=== PATIENT | male | born 1940 | race Caucasian/White ===

== ENCOUNTER → 2017-07-21 | Outpatient (CLI) | payer MEDICARE, BC ==
[~2017-07-21] MED LIST: ASPI500; ASPI81EC PO; ATOR40TA PO; BENAML20/5; BETA.05TC; BUME2 PO; CICLOPIROX 8%34.6 ML; CITA20 PO; ERGO50000 PO; ESCI10; EZET10; Ecotrin Low Strength PO; FURO40 PO; GARLIC TAB; HYDACE5 PO; HYDCOR1TO TOP; LISI5 PO; METO100ER; METO25 PO; METO25ER PO; METO50 PO; METO50ER PO; NIAC500ER PO; OMEP20ER PO; PRAV20 PO; Penlac6.6 ML; Plavix75 MG PO; RABE20; SPIR50; TRIA15CR3; TRIA15CR3 TOP; Zantac150 MG PO; [UNRECOGNIZED DRUG - OTHER]
== END | disposition home or self-care (01) ==
LOC: PLD 09:17 → LAB SHORT 09:17
DX: D22.39 Melanocytic nevi of other parts of face (principal)
CPT/HCPCS: 88305

== ENCOUNTER 2017-09-10 22:10 | Inpatient (IN) | payer MEDICARE, BC ==
[~2017-09-10] VITALS: Ht 193 cm; Wt 83.2 kg
[~2017-09-10 22:10] MED LIST changes: -ATOR40TA PO; -LISI5 PO; -METO25ER PO; -Plavix75 MG PO; -TRIA15CR3 TOP; -Zantac150 MG PO
[2017-09-10] MEDS ORDERED: Penlac6.6 ML (22:55)
[2017-09-10] MEDS ORDERED: TRIA15CR3 TOP (22:56)
[2017-09-10 23:00] LABS: Calcium, Ionized (POC) 1.18 mmol/L (1.10-1.46); Chloride (POC) 105 mmol/L (98-108); Creatinine (POC) 1.2 mg/dL (0.8-1.3); Glucose (ISTAT POC) 77 mg/dL (70-99); Hemoglobin (POC) 15.3 g/dL (13.5-17.5); Potassium (POC) 3.8 mmol/L (3.5-5.5); Sodium (POC) 142 mmol/L (135-148); Total CO2 (POC) 25 mmol/L (21-32)
[2017-09-10 23:07] LABS: BASOPHILS ABSOLUTE AUTO 0.07 K/mm3 (0.00-0.23); BASOPHILS PERCENT AUTO 1 % (0-2); EOSINOPHILS ABSOLUTE AUTO 0.49 K/mm3 (0.00-0.68); EOSINOPHILS PERCENT AUTO 6 % (0-6); Hematocrit 43.4 % (37.0-53.0); Hemoglobin 14.1 g/dL (13.5-17.5); IMMATURE GRAN ABSOLUTE AUTO 0.01 K/mm3 (0.00-0.10); IMMATURE GRAN PERCENT AUTO 0 % (0-1); LYMPHOCYTES ABSOLUTE AUTO 1.95 K/mm3 (0.84-5.20); LYMPHOCYTES PERCENT AUTO 23 % (21-46); MONOCYTES ABSOLUTE AUTO 0.95 K/mm3 (0.16-1.47); MONOCYTES PERCENT AUTO 11 % (4-13); Mean Corpuscular HGB 29.8 pg (26.0-34.0); Mean Corpuscular HGB Conc 32.5 g/dL (31.5-36.5); Mean Corpuscular Volume 92 fL (80-100); Mean Platelet Volume 11.7 fL (9.1-12.4); NEUTROPHILS PERCENT AUTO 59 % (41-73); Platelet Count 210 K/mm3 (150-400); RDW Coefficient Variation 14.8 % (11.7-14.2); RDW Standard Deviation 50.7 fL (35.1-46.3); Red Blood Cell Count 4.73 M/mm3 (4.30-5.90); White Blood Cell Count 8.37 K/mm3 (4.00-11.30)
[2017-09-10 23:24] LABS: Alanine Aminotransfer (ALT/SGP 16 U/L (12-78); Albumin, Blood 3.5 g/dL (3.4-5.0); Albumin/Globulin Ratio 0.9 (0.8-1.8); Alk Phos 96 U/L (50-136); Anion Gap 7 mmol/L (6-16); Aspartate Aminotrans (AST/SGOT 23 U/L (12-37); Bilirubin, Total 0.5 mg/dL (0.1-1.0); Blood Urea Nitrogen 20 mg/dL (8-24); Bun/Creatinine Ratio 19.4 (12.0-20.0); CO2, Blood 27 mmol/L (21-32); Calcium, Blood 8.5 mg/dL (8.5-10.1); Chloride, Blood 108 mmol/L (98-108); Creatinine, Blood 1.03 mg/dL (0.60-1.20); Glomerular Filtration Rate >60 (60-); Glucose, Blood 76 mg/dL (70-99); Potassium, Blood 3.8 mmol/L (3.5-5.5); Sodium, Blood 142 mmol/L (136-145); Total Protein, Blood 7.5 g/dL (6.4-8.2); Troponin I 0.174 ng/mL (0.000-0.040)
[2017-09-11 01:17] LABS: International Normalized Ratio 1.02; Prothrombin Time Results 10.6 Sec (9.7-11.5)
[2017-09-12 04:33] LABS: BASOPHILS ABSOLUTE AUTO 0.07 K/mm3 (0.00-0.23); BASOPHILS PERCENT AUTO 1 % (0-2); EOSINOPHILS ABSOLUTE AUTO 0.44 K/mm3 (0.00-0.68); EOSINOPHILS PERCENT AUTO 6 % (0-6); Hematocrit 40.3 % (37.0-53.0); Hemoglobin 13.2 g/dL (13.5-17.5); IMMATURE GRAN ABSOLUTE AUTO 0.01 K/mm3 (0.00-0.10); IMMATURE GRAN PERCENT AUTO 0 % (0-1); LYMPHOCYTES ABSOLUTE AUTO 1.73 K/mm3 (0.84-5.20); LYMPHOCYTES PERCENT AUTO 22 % (21-46); MONOCYTES ABSOLUTE AUTO 0.93 K/mm3 (0.16-1.47); MONOCYTES PERCENT AUTO 12 % (4-13); Mean Corpuscular HGB 29.7 pg (26.0-34.0); Mean Corpuscular HGB Conc 32.8 g/dL (31.5-36.5); Mean Corpuscular Volume 91 fL (80-100); Mean Platelet Volume 11.2 fL (9.1-12.4); NEUTROPHILS ABSOLUTE AUTO 4.66 K/mm3 (1.96-9.15); NEUTROPHILS PERCENT AUTO 59 % (41-73); Platelet Count 192 K/mm3 (150-400); RDW Coefficient Variation 14.9 % (11.7-14.2); RDW Standard Deviation 49.7 fL (35.1-46.3); Red Blood Cell Count 4.44 M/mm3 (4.30-5.90); White Blood Cell Count 7.84 K/mm3 (4.00-11.30)
[2017-09-12 04:53] LABS: Anion Gap 5 mmol/L (6-16); Blood Urea Nitrogen 19 mg/dL (8-24); Bun/Creatinine Ratio 16.5 (12.0-20.0); CO2, Blood 28 mmol/L (21-32); Calcium, Blood 8.5 mg/dL (8.5-10.1); Chloride, Blood 108 mmol/L (98-108); Creatinine, Blood 1.15 mg/dL (0.60-1.20); Glomerular Filtration Rate >60 (60-); Glucose, Blood 89 mg/dL (70-99); Potassium, Blood 4.1 mmol/L (3.5-5.5); Sodium, Blood 141 mmol/L (136-145)
[2017-09-13 03:58] LABS: BASOPHILS ABSOLUTE AUTO 0.06 K/mm3 (0.00-0.23); BASOPHILS PERCENT AUTO 1 % (0-2); EOSINOPHILS ABSOLUTE AUTO 0.23 K/mm3 (0.00-0.68); EOSINOPHILS PERCENT AUTO 2 % (0-6); Hematocrit 41.6 % (37.0-53.0); Hemoglobin 13.5 g/dL (13.5-17.5); IMMATURE GRAN ABSOLUTE AUTO 0.02 K/mm3 (0.00-0.10); IMMATURE GRAN PERCENT AUTO 0 % (0-1); LYMPHOCYTES PERCENT AUTO 12 % (21-46); MONOCYTES ABSOLUTE AUTO 1.22 K/mm3 (0.16-1.47); MONOCYTES PERCENT AUTO 12 % (4-13); Mean Corpuscular HGB 29.5 pg (26.0-34.0); Mean Corpuscular HGB Conc 32.5 g/dL (31.5-36.5); Mean Corpuscular Volume 91 fL (80-100); Mean Platelet Volume 11.8 fL (9.1-12.4); NEUTROPHILS ABSOLUTE AUTO 7.75 K/mm3 (1.96-9.15); NEUTROPHILS PERCENT AUTO 73 % (41-73); Platelet Count 196 K/mm3 (150-400); RDW Coefficient Variation 14.9 % (11.7-14.2); RDW Standard Deviation 49.9 fL (35.1-46.3); Red Blood Cell Count 4.58 M/mm3 (4.30-5.90); White Blood Cell Count 10.58 K/mm3 (4.00-11.30)
[2017-09-13 04:21] LABS: Anion Gap 5 mmol/L (6-16); Blood Urea Nitrogen 20 mg/dL (8-24); Bun/Creatinine Ratio 16.4 (12.0-20.0); CO2, Blood 28 mmol/L (21-32); Calcium, Blood 8.4 mg/dL (8.5-10.1); Chloride, Blood 108 mmol/L (98-108); Creatinine, Blood 1.22 mg/dL (0.60-1.20); Glomerular Filtration Rate >60 (60-); Glucose, Blood 94 mg/dL (70-99); Potassium, Blood 4.1 mmol/L (3.5-5.5); Sodium, Blood 141 mmol/L (136-145)
[2017-09-13] MEDS ORDERED: Plavix75 MG PO (15:22)
[2017-09-13] MEDS ORDERED: ATOR40TA PO (15:24)
[2017-09-13] MEDS ORDERED: LISI5 PO (15:25)
[2017-09-13] MEDS ORDERED: METO25ER PO (15:27)
== END 2017-09-13 16:00 | disposition home or self-care (01) | DRG 247 ==
LOC: ER 22:10 → ICUW 09-11 00:35 → ICUE 09-11 00:35
PROVIDERS: Emergency Medicine; Internal Medicine Interventional Cardiology
PROC: 027034Z Dilation of Coronary Artery, One Artery with Drug-eluting Intraluminal Device, Percutaneous Approach (ICD-10-PCS; principal; 2017-09-12)
PROC: 4A023N7 Measurement of Cardiac Sampling and Pressure, Left Heart, Percutaneous Approach (ICD-10-PCS; 2017-09-12)
PROC: B2111ZZ Fluoroscopy of Multiple Coronary Arteries using Low Osmolar Contrast (ICD-10-PCS; 2017-09-12)
DX: I21.4 Non-ST elevation (NSTEMI) myocardial infarction (principal); C81.90 Hodgkin lymphoma, unspecified, unspecified site; I25.10 Atherosclerotic heart disease of native coronary artery without angina pectoris; I10 Essential (primary) hypertension; K21.9 Gastro-esophageal reflux disease without esophagitis; I73.9 Peripheral vascular disease, unspecified; E78.5 Hyperlipidemia, unspecified; I65.29 Occlusion and stenosis of unspecified carotid artery; F32.9 Major depressive disorder, single episode, unspecified
CPT/HCPCS: 36415; 36416; 71046; 71275; 74175; 80047; 80048; 80053; 83690; 84484; 85014; 85025; 85610; 85730; 92978; 93005; 93010; 93306; 93454; 93571; 96365; 99152; 99153; 99285; C1725; C1753; C1769; C1874; C1894; C9600; J0360; J1644; J2250; J3010; J7030; Q9967

== ENCOUNTER 2018-02-12 22:12 | Emergency (ER) | payer MEDICARE, BC ==
[~2018-02-12] VITALS: Ht 193 cm; Wt 88.9 kg
[~2018-02-12 22:12] MED LIST changes: +ATOR40TA PO; +LISI5 PO; +METO25ER PO; +Plavix75 MG PO; +TRIA15CR3 TOP
[2018-02-12 22:42] LABS: BASOPHILS ABSOLUTE AUTO 0.08 K/mm3 (0.00-0.23); BASOPHILS PERCENT AUTO 1 % (0-2); EOSINOPHILS ABSOLUTE AUTO 0.21 K/mm3 (0.00-0.68); EOSINOPHILS PERCENT AUTO 2 % (0-6); Hematocrit 41.9 % (37.0-53.0); Hemoglobin 13.5 g/dL (13.5-17.5); IMMATURE GRAN ABSOLUTE AUTO 0.03 K/mm3 (0.00-0.10); IMMATURE GRAN PERCENT AUTO 0 % (0-1); LYMPHOCYTES ABSOLUTE AUTO 1.39 K/mm3 (0.84-5.20); LYMPHOCYTES PERCENT AUTO 13 % (21-46); MONOCYTES ABSOLUTE AUTO 0.82 K/mm3 (0.16-1.47); MONOCYTES PERCENT AUTO 8 % (4-13); Mean Corpuscular HGB 31.3 pg (26.0-34.0); Mean Corpuscular HGB Conc 32.2 g/dL (31.5-36.5); Mean Corpuscular Volume 97 fL (80-100); Mean Platelet Volume 11.4 fL (9.1-12.4); NEUTROPHILS ABSOLUTE AUTO 8.21 K/mm3 (1.96-9.15); NEUTROPHILS PERCENT AUTO 77 % (41-73); Platelet Count 201 K/mm3 (150-400); RDW Coefficient Variation 15.2 % (11.7-14.2); RDW Standard Deviation 54.7 fL (35.1-46.3); Red Blood Cell Count 4.32 M/mm3 (4.30-5.90); White Blood Cell Count 10.74 K/mm3 (4.00-11.30)
[2018-02-12] MEDS ORDERED: Zantac150 MG PO (22:49)
[2018-02-12 23:01] LABS: Alanine Aminotransfer (ALT/SGP 19 U/L (12-78); Albumin, Blood 3.5 g/dL (3.4-5.0); Albumin/Globulin Ratio 0.9 (0.8-1.8); Alk Phos 98 U/L (50-136); Anion Gap 8 mmol/L (6-16); Aspartate Aminotrans (AST/SGOT 23 U/L (12-37); Bilirubin, Total 0.4 mg/dL (0.1-1.0); Blood Urea Nitrogen 33 mg/dL (8-24); Bun/Creatinine Ratio 21.6 (12.0-20.0); CO2, Blood 26 mmol/L (21-32); Calcium, Blood 8.8 mg/dL (8.5-10.1); Chloride, Blood 109 mmol/L (98-108); Creatinine, Blood 1.53 mg/dL (0.60-1.20); Globulin, Blood 3.7 g/dL (2.2-4.0); Glomerular Filtration Rate 47 (60-); Glucose, Blood 113 mg/dL (70-99); Potassium, Blood 4.6 mmol/L (3.5-5.5); Sodium, Blood 143 mmol/L (136-145); Total Protein, Blood 7.2 g/dL (6.4-8.2); Troponin I <0.015 ng/mL (0.000-0.040)
== END 2018-02-13 01:44 | disposition home or self-care (01) ==
LOC: ER 22:12
PROVIDERS: Emergency Medicine
DX: R55 Syncope and collapse (principal); R61 Generalized hyperhidrosis; Z88.0 Allergy status to penicillin; Z91.040 Latex allergy status; Z79.899 Other long term (current) drug therapy; Z79.01 Long term (current) use of anticoagulants
CPT/HCPCS: 36415; 71046; 80053; 84484; 85025; 93005; 93010; 99285-25

== ENCOUNTER → 2018-07-27 | Outpatient (CLI) | payer MEDICARE, BC ==
[~2018-07-27] MED LIST changes: +Zantac150 MG PO
[2018-07-27 15:00] LABS: Bun/Creatinine Ratio 18.2 (12.0-20.0); Calcium, Blood 9.1 mg/dL (8.5-10.1); Creatinine, Blood 1.37 mg/dL (0.60-1.20); Potassium, Blood 4.8 mmol/L (3.5-5.5)
== END ==
LOC: LAB SHORT 13:43 → LAB 13:43
PROVIDERS: Hospitalist
DX: N18.3 Chronic kidney disease, stage 3 (moderate) (principal)
CPT/HCPCS: 80048

== ENCOUNTER → 2020-04-15 | Outpatient (CLI) | payer MEDICARE, BC ==
[2020-04-15 16:01] LABS: BASOPHILS ABSOLUTE AUTO 0.07 K/mm3 (0.00-0.23); BASOPHILS PERCENT AUTO 1 % (0-2); EOSINOPHILS ABSOLUTE AUTO 0.29 K/mm3 (0.00-0.68); EOSINOPHILS PERCENT AUTO 4 % (0-6); Hematocrit 40.2 % (37.0-53.0); Hemoglobin 12.8 g/dL (13.5-17.5); IMMATURE GRAN ABSOLUTE AUTO 0.02 K/mm3 (0.00-0.10); IMMATURE GRAN PERCENT AUTO 0 % (0-1); LYMPHOCYTES ABSOLUTE AUTO 1.56 K/mm3 (0.84-5.20); LYMPHOCYTES PERCENT AUTO 21 % (21-46); MONOCYTES ABSOLUTE AUTO 0.73 K/mm3 (0.16-1.47); MONOCYTES PERCENT AUTO 10 % (4-13); Mean Corpuscular HGB 29.2 pg (26.0-34.0); Mean Corpuscular HGB Conc 31.8 g/dL (31.5-36.5); Mean Corpuscular Volume 92 fL (80-100); NEUTROPHILS ABSOLUTE AUTO 4.88 K/mm3 (1.96-9.15); NEUTROPHILS PERCENT AUTO 65 % (41-73); RDW Coefficient Variation 15.5 % (11.7-14.2); RDW Standard Deviation 52.5 fL (35.1-46.3); Red Blood Cell Count 4.39 M/mm3 (4.30-5.90); White Blood Cell Count 7.55 K/mm3 (4.00-11.30)
[2020-04-15 18:01] LABS: Albumin, Blood 3.5 g/dL (3.4-5.0); Albumin/Globulin Ratio 0.9 (0.8-1.8); Bilirubin, Total 0.4 mg/dL (0.1-1.0); Bun/Creatinine Ratio 25.2 (12.0-20.0); Calcium, Blood 8.8 mg/dL (8.5-10.1); Creatinine, Blood 1.27 mg/dL (0.60-1.20); Globulin, Blood 3.7 g/dL (2.2-4.0); Total Protein, Blood 7.2 g/dL (6.4-8.2)
== END | disposition home or self-care (01) ==
LOC: LAB 10:12 → LAB SHORT 10:12
PROVIDERS: Hospitalist
DX: N18.31 Chronic kidney disease, stage 3a (principal)
CPT/HCPCS: 80053; 85025

== ENCOUNTER → 2021-06-16 | Outpatient (CLI) | payer MEDICARE, BC ==
[2021-06-16 13:19] LABS: Hemoglobin 12.4 g/dL (13.5-17.5); Mean Corpuscular HGB 29.2 pg (26.0-34.0); Mean Corpuscular HGB Conc 32.6 g/dL (31.5-36.5); Mean Corpuscular Volume 90 fL (80-100); Platelet Count 165 K/mm3 (150-400); RDW Coefficient Variation 16.5 % (11.7-14.2); RDW Standard Deviation 53.9 fL (35.1-46.3); Red Blood Cell Count 4.24 M/mm3 (4.30-5.90)
[2021-06-16 13:32] LABS: Albumin, Blood 3.4 g/dL (3.4-5.0); Bilirubin, Total 1.1 mg/dL (0.1-1.0); Calcium, Blood 8.8 mg/dL (8.5-10.1); Creatinine, Blood 1.75 mg/dL (0.60-1.20); Globulin, Blood 3.5 g/dL (2.2-4.0); Potassium, Blood 3.6 mmol/L (3.5-5.5); Total Protein, Blood 6.9 g/dL (6.4-8.2)
[2021-06-16 13:40] LABS: BASOPHILS ABSOLUTE AUTO 0.04 K/mm3 (0.00-0.23); BASOPHILS PERCENT AUTO 0 % (0-2); EOSINOPHILS PERCENT AUTO 1 % (0-6); IMMATURE GRAN ABSOLUTE AUTO 0.09 K/mm3 (0.00-0.10); IMMATURE GRAN PERCENT AUTO 1 % (0-1); LYMPHOCYTES ABSOLUTE AUTO 0.77 K/mm3 (0.84-5.20); LYMPHOCYTES PERCENT AUTO 5 % (21-46); MONOCYTES ABSOLUTE AUTO 0.95 K/mm3 (0.16-1.47); MONOCYTES PERCENT AUTO 6 % (4-13); Mean Platelet Volume 13.4 fL (9.1-12.4); NEUTROPHILS ABSOLUTE AUTO 13.19 K/mm3 (1.96-9.15); NEUTROPHILS PERCENT AUTO 87 % (41-73); White Blood Cell Count 15.14 K/mm3 (4.00-11.30)
== END ==
LOC: LAB SHORT 13:14
PROVIDERS: Physician Assistant
DX: R10.9 Unspecified abdominal pain (principal); N10 Acute pyelonephritis
CPT/HCPCS: 80053; 83690; 85025

== ENCOUNTER → 2021-07-03 | Outpatient (CLI) | payer MEDICARE, BC | END | disposition home or self-care (01) | LOC: LAB SHORT 15:40 | DX: N30.01 Acute cystitis with hematuria (principal) | CPT/HCPCS: 87077; 87086; 87186 ==

== ENCOUNTER 2022-03-10 13:09 | Emergency (ER) | payer MEDICARE, BC ==
[~2022-03-10] VITALS: Ht 193 cm; Wt 81.7 kg
[2022-03-10 13:33] LABS: Hematocrit 38.3 % (37.0-53.0); Hemoglobin 12.1 g/dL (13.5-17.5); Mean Corpuscular HGB 28.6 pg (26.0-34.0); Mean Corpuscular HGB Conc 31.6 g/dL (31.5-36.5); Mean Corpuscular Volume 91 fL (80-100); Mean Platelet Volume 12.4 fL (9.1-12.4); Platelet Count 139 K/mm3 (150-400); RDW Coefficient Variation 16.3 % (11.7-14.2); Red Blood Cell Count 4.23 M/mm3 (4.30-5.90)
[2022-03-10 13:39] LABS: White Blood Cell Count 10.06 K/mm3 (4.00-11.30)
[2022-03-10 13:51] LABS: International Normalized Ratio 2.28; Prothrombin Time Results 22.7 Sec (9.7-11.5)
[2022-03-10 13:57] LABS: BASOPHILS PERCENT MAN 2 % (0-2); EOSINOPHILS PERCENT MAN 1 % (0-6); LYMPHOCYTES PERCENT MAN 13 % (21-46); MONOCYTES PERCENT MAN 6 % (4-13); NEUTROPHILS ABSOLUTE MAN 7.84 K/mm3 (1.96-9.15); SEG NEUTROPHILS PERCENT MAN 78 % (41-73); TOTAL CELLS COUNTED 100
[2022-03-10 14:00] LABS: Alanine Aminotransfer (ALT/SGP 19 U/L (12-78); Albumin, Blood 3.3 g/dL (3.4-5.0); Albumin/Globulin Ratio 0.9 (0.8-1.8); Alk Phos 128 U/L (50-136); Anion Gap 7 mmol/L (6-16); Aspartate Aminotrans (AST/SGOT 26 U/L (12-37); Bilirubin, Total 0.4 mg/dL (0.1-1.0); Blood Urea Nitrogen 28 mg/dL (8-24); Bun/Creatinine Ratio 21.5 (12.0-20.0); CO2, Blood 26 mmol/L (21-32); Calcium, Blood 9.1 mg/dL (8.5-10.1); Chloride, Blood 107 mmol/L (98-108); Ethanol (Alcohol), Blood, Med <3 mg/dL; Globulin, Blood 3.5 g/dL (2.2-4.0); Glomerular Filtration Rate 55 (60-); Glucose, Blood 104 mg/dL (70-99); Potassium, Blood 4.2 mmol/L (3.5-5.5); Sodium, Blood 140 mmol/L (136-145); Total Protein, Blood 6.8 g/dL (6.4-8.2)
[2022-03-10 14:42] LABS: Source, Urine Foley catheter
[2022-03-10 14:52] LABS: Appearance, Urine Clear (Clear); Bilirubin, Urine Neg (Neg); Blood, Urine 3+ (Neg); Color, Urine Yellow (P-Yellow); Glucose Qualitative, Urine Neg (Neg); Ketones, Urine Neg (Neg); Leukocyte Esterase, Urine 1+ (Neg); Nitrite, Urine Neg (Neg); Protein, Urine 1+ (Neg); Urobilinogen, Urine NORM (Normal); pH, Urine 6.5 (5.0-8.0)
[2022-03-10 15:03] LABS: Bacteria Rare /hpf; Hyaline Casts 0-2 /lpf (0-2); Mucus Light (0-Heavy); Red Blood Cells, Urine 0-2 /hpf (0-2); Renal Epithelial Rare /hpf (0-Rare); Squamous Epithelial Cells Rare /hpf (Few)
== END 2022-03-10 16:30 | disposition other institution (70) ==
LOC: ER 13:09
PROVIDERS: Emergency Medicine
DX: S06.5XAA Traumatic subdural hemorrhage with loss of consciousness status unknown, initial encounter (principal); R40.2362 Coma scale, best motor response, obeys commands, at arrival to emergency department; R40.2142 Coma scale, eyes open, spontaneous, at arrival to emergency department; R40.2252 Coma scale, best verbal response, oriented, at arrival to emergency department; W19.XXXA Unspecified fall, initial encounter; Z88.0 Allergy status to penicillin; Z91.040 Latex allergy status; Z79.899 Other long term (current) drug therapy; Z79.01 Long term (current) use of anticoagulants
CPT/HCPCS: 36415; 51702; 70450; 72125; 80053; 81001; 83690; 83880; 84484; 85025; 85610; 86850; 86900; 86901; 87086; 93005; 93010; G0480; J2405; J3430; J7050; J7168

== ENCOUNTER → 2022-11-24 | Outpatient (CLI) | payer MEDICARE, BC, OTHER ==
[~2022-11-24] MED LIST changes: +CIPR500 PO; +ELIQUIS5 M3 PO
[2022-11-24 19:55] LABS: Calcium, Blood 8.8 mg/dL (8.5-10.1); Creatinine, Blood 1.25 mg/dL (0.60-1.20); Potassium, Blood 4.7 mmol/L (3.5-5.5)
== END ==
LOC: LAB SHORT 12:25 → LAB 12:25
PROVIDERS: Hospitalist
DX: I12.9 Hypertensive chronic kidney disease with stage 1 through stage 4 chronic kidney disease, or unspecified chronic kidney disease (principal); N18.31 Chronic kidney disease, stage 3a
CPT/HCPCS: 80048; 83970

== ENCOUNTER → 2023-01-14 | Outpatient (CLI) | payer MEDICARE, BC, OTHER ==
[2023-01-14 19:49] LABS: BASOPHILS ABSOLUTE AUTO 0.05 K/mm3 (0.00-0.23); BASOPHILS PERCENT AUTO 1 % (0-2); EOSINOPHILS ABSOLUTE AUTO 0.23 K/mm3 (0.00-0.68); EOSINOPHILS PERCENT AUTO 3 % (0-6); Hematocrit 37.8 % (37.0-53.0); Hemoglobin 12.2 g/dL (13.5-17.5); IMMATURE GRAN ABSOLUTE AUTO 0.03 K/mm3 (0.00-0.10); IMMATURE GRAN PERCENT AUTO 0 % (0-1); LYMPHOCYTES ABSOLUTE AUTO 1.42 K/mm3 (0.84-5.20); LYMPHOCYTES PERCENT AUTO 17 % (21-46); MONOCYTES ABSOLUTE AUTO 0.84 K/mm3 (0.16-1.47); MONOCYTES PERCENT AUTO 10 % (4-13); Mean Corpuscular HGB 29.1 pg (26.0-34.0); Mean Corpuscular HGB Conc 32.3 g/dL (31.5-36.5); Mean Corpuscular Volume 90 fL (80-100); Mean Platelet Volume 12.7 fL (9.1-12.4); NEUTROPHILS PERCENT AUTO 70 % (41-73); Platelet Count 127 K/mm3 (150-400); RDW Coefficient Variation 16.9 % (11.7-14.2); RDW Standard Deviation 56.2 fL (35.1-46.3); Red Blood Cell Count 4.19 M/mm3 (4.30-5.90); White Blood Cell Count 8.47 K/mm3 (4.00-11.30)
== END ==
LOC: LAB 17:45 → LAB SHORT 17:45
PROVIDERS: Hospitalist
DX: I10 Essential (primary) hypertension (principal)
CPT/HCPCS: 85025

== ENCOUNTER 2023-04-03 14:14 | Inpatient (IN) | payer OTHER, MEDICARE, BC ==
[~2023-04-03] VITALS: Ht 193 cm; Wt 79.7 kg
[2023-04-03] MEDS ORDERED: NORT25 PO (15:18)
[2023-04-03] MEDS ORDERED: FERSU300 PO (15:20)
[2023-04-03 16:30] LABS: BASOPHILS ABSOLUTE AUTO 0.06 K/mm3 (0.00-0.23); BASOPHILS PERCENT AUTO 1 % (0-2); EOSINOPHILS PERCENT AUTO 2 % (0-6); Hematocrit 37.2 % (37.0-53.0); Hemoglobin 12.5 g/dL (13.5-17.5); IMMATURE GRAN PERCENT AUTO 1 % (0-1); LYMPHOCYTES ABSOLUTE AUTO 1.21 K/mm3 (0.84-5.20); LYMPHOCYTES PERCENT AUTO 12 % (21-46); MONOCYTES ABSOLUTE AUTO 0.75 K/mm3 (0.16-1.47); MONOCYTES PERCENT AUTO 8 % (4-13); Mean Corpuscular HGB 30.5 pg (26.0-34.0); Mean Corpuscular HGB Conc 33.6 g/dL (31.5-36.5); Mean Corpuscular Volume 91 fL (80-100); NEUTROPHILS ABSOLUTE AUTO 7.42 K/mm3 (1.96-9.15); NEUTROPHILS PERCENT AUTO 76 % (41-73); Platelet Count 149 K/mm3 (150-400); RDW Coefficient Variation 15.8 % (11.7-14.2); RDW Standard Deviation 53.5 fL (35.1-46.3); White Blood Cell Count 9.74 K/mm3 (4.00-11.30)
[2023-04-03 16:31] LABS: Albumin, Blood 3.2 g/dL (3.4-5.0); Bilirubin, Total 0.4 mg/dL (0.1-1.0); Bun/Creatinine Ratio 18.5 (12.0-20.0); Calcium, Blood 8.4 mg/dL (8.5-10.1); Creatinine, Blood 1.19 mg/dL (0.60-1.20); Globulin, Blood 3.3 g/dL (2.2-4.0); Mean Platelet Volume 13.9 fL (9.1-12.4); Potassium, Blood 4.4 mmol/L (3.5-5.5); Total Protein, Blood 6.5 g/dL (6.4-8.2)
[2023-04-03 16:43] LABS: International Normalized Ratio 1.05
[2023-04-03 17:35] VITALS: BP 145/102
[2023-04-03 17:36] VITALS: BP 158/100
[2023-04-03 17:40] VITALS: BP 158/93
[2023-04-03 17:51] VITALS: BP 158/93
[2023-04-03 18:39] VITALS: BP 151/96
--- NOTE | 2023-04-03 19:39 | NUR ---
SHIFT SUMMARY; PATIENT ARRIVED TO SURGICAL FLOOR LATE IN EVENING PRIOR TO NOC SHIFT TAKING OVER. PATIENT AO X 2-3. CAREGIVER AT BEDSIDE. MED LIST PROVIDED BY CAREGIVER. PATIENT HAS COGNITIVE IMPAIRMENTS. HISTORY AND ASSESSMENTS DONE PER PROTOCOL. PATIENT VERY PAINFULL WHEN MOVED FROM ER BED TO HOSPITAL BED IN ROOM. 4MG MORPHINE PROVIDED IV WITH MINIMAL RESULTS. 25MCG GIVEN AT SHIFT CHANGE WITH BETTER RESULTS HOWEVER PATIENT IS STILL PAINFULL.
[2023-04-03 19:47] VITALS: BP 159/97
[2023-04-03 22:22] LABS: Source, Urine Clean Catch
[2023-04-03 22:24] LABS: Bilirubin, Urine Neg (Neg); Blood, Urine 3+ (Neg); Glucose Qualitative, Urine Neg (Neg); Ketones, Urine Neg (Neg); Leukocyte Esterase, Urine Neg (Neg); Nitrite, Urine Neg (Neg); Protein, Urine 1+ (Neg); Specific Gravity, Urine 1.015 (1.003-1.022); Urobilinogen, Urine NORM (Normal)
--- NOTE | 2023-04-03 22:28 | NUR ---
HAMMOND PLACED EARLIER IN THE SHIFT FOR SEVERE RETENTION PER MD ORDERS. UA SENT TO LAB FOR PROCESSING. INTERMITTENT PAIN VOICED RE HIP FX, NOTIFIED, DILAUDID PRN ORDERED. SEE MAR FOR DETAILS
[2023-04-03 22:37] LABS: Appearance, Urine Clear (Clear); Bacteria Not Seen /hpf; Color, Urine Yellow (P-Yellow); Red Blood Cells, Urine 25-50 /hpf (0-2); Squamous Epithelial Cells Not Seen /hpf (Few); White Blood Cells, Urine Not Seen /hpf (0-5)
[2023-04-04 03:46] VITALS: BP 142/89
--- NOTE | 2023-04-04 04:02 | NUR ---
PHARMACY GRAD INTERN SUMMARY VSS. HERE FOR RIGHT HIP FX - REPORTEDLY FELL AT [facility]. SOME COGNITIVE IMPAIRMENT, OCCASIONAL VERBALIZATION OF NOT KNOWING WHERE HE WAS AND OF NOT REMEBERING OF NURSE AND STAFF CHECKING IN ON HIM. HAMMOND HAD BEEN PRACED EARLIER IN THE SHIFT FOR SEVERE RETENTION. NOTED SOME OBSRUCTION IN PLACING HAMMOND, REQUIRED COUDE CATH PLACED BY MEDICAL CODING MANAGER. DRAINING KLELI. PAIN MEDS ADMINISTERED FOR SEVERE DISCOMFORT. MORPHINE DC'D PER MD ORDER, DILAUDID ORDERED INSTEAD, MED MORE EFFECTIVE. INTERMITTENT SLEEPING. HOB ELEVATED. REPOSITIONED FOR COMFORT, WHILE TRYING TO STABILIZE HIP TO PREVENT CONDITION WORSENING. UA SENT TO LAB FOR PROCESSING. CALL LIGHT IN REACH. WILL CONT TO MONITOR
[2023-04-04 05:16] LABS: BASOPHILS ABSOLUTE AUTO 0.05 K/mm3 (0.00-0.23); BASOPHILS PERCENT AUTO 0 % (0-2); EOSINOPHILS ABSOLUTE AUTO 0.01 K/mm3 (0.00-0.68); EOSINOPHILS PERCENT AUTO 0 % (0-6); Hemoglobin 13.5 g/dL (13.5-17.5); IMMATURE GRAN ABSOLUTE AUTO 0.09 K/mm3 (0.00-0.10); IMMATURE GRAN PERCENT AUTO 1 % (0-1); LYMPHOCYTES ABSOLUTE AUTO 0.79 K/mm3 (0.84-5.20); LYMPHOCYTES PERCENT AUTO 5 % (21-46); MONOCYTES ABSOLUTE AUTO 1.24 K/mm3 (0.16-1.47); MONOCYTES PERCENT AUTO 7 % (4-13); Mean Corpuscular HGB 30.3 pg (26.0-34.0); Mean Corpuscular HGB Conc 32.9 g/dL (31.5-36.5); Mean Corpuscular Volume 92 fL (80-100); Mean Platelet Volume 12.9 fL (9.1-12.4); NEUTROPHILS ABSOLUTE AUTO 15.51 K/mm3 (1.96-9.15); NEUTROPHILS PERCENT AUTO 88 % (41-73); Platelet Count 172 K/mm3 (150-400); RDW Coefficient Variation 15.7 % (11.7-14.2); RDW Standard Deviation 53.2 fL (35.1-46.3); Red Blood Cell Count 4.46 M/mm3 (4.30-5.90); White Blood Cell Count 17.69 K/mm3 (4.00-11.30)
[2023-04-04 07:11] VITALS: BP 113/97
[2023-04-04 07:12] VITALS: BP 140/69
[2023-04-04 14:51] VITALS: BP 118/71
--- NOTE | 2023-04-04 17:58 | NUR ---
SHIFT SUMMARY PT AxOx4 WITH INTERM FORGETFULNESS. PT IS PLEASANT AND COOPERATIVE WITH CARE. PT IS ON BEDREST AWAITING R HIP FX REPAIR. ORTHO CONSULT TODAY, WITH PLAN FOR NPO AT MIDNIGHT AND SURGERY TOMORROW. PT REPORTS HIGH PAIN TODAY, AND WAS MEDICATED PER EMAR x2 WITH REPORTED RELIEF. PERI BARAJAS, CAREGIVER IN FOR VISITING TODAY, AND WAS UPDATED ON PLAN OF CARE. PT HAS BEEN EATING/DRINKING WITHOUT DIFFICULTY AND RESTING WITHOUT ADDITIONAL COMPLAINTS. PT IS CURRENTLY SITTING UP IN BED EATING DINNER. DENIES ANY NEEDS AT THIS TIME. CALL LIGHT IN REACH.
[2023-04-04 19:14] VITALS: BP 169/85
[2023-04-05] VITALS (20 sets, daily range): BP systolic 90–161; BP diastolic 66–97
--- NOTE | 2023-04-05 05:56 | NUR ---
SHIFT SUMMARY PT IS HERE AWAITING SURGERY FOR A RIGHT HIP FX. PT IS ON ELIQUIS FOR CAROTID STENOSIS AND NEEDED TO WAIT 48 HOURS BEFORE SURGERY. PT IS CURRENTLY ON BEDREST AND HAS BEEN MEDICATED FOR HIS PAIN PER EMAR. BED IS IN LOWEST POSITION, CALL LIGHT IS WITHIN REACH.
--- NOTE | 2023-04-05 13:36 | NUR ---
PT HERE ON BED FOR RT HIP BOLIVAR ARTHROPLASTY. PT'S CAREGIVER AT BS. Pre-Op teaching done. Pt verbalizes understanding. History, Chart, Medications and Allergies reviewed before start of procedure.Patient confirms NPO status and agrees with scheduled surgery.
--- NOTE | 2023-04-05 18:41 | NUR ---
SHIFT SUMMARY PT A&O3/OCC CONFUSED/REORIENTS EASILY, SHELLIE PO(MECH SOFT CARDIAC, THIN LIQ, MEDS WITH APPLESAUCE, 90 DEGREES UP), HAMMOND PATENT/STAT LOCK/OFF FLOOR, PAIN MANAGED, S/P R BOLIVAR HIP APPROX [id number], FOAM TAPE CDI, REPOSITIONS WELL. WILL REPORT TO ONCOMING NOC RN.
--- NOTE | 2023-04-05 22:01 | NUR ---
PT CONFUSED AND ATTEMPTING TO GET OUT OF BED. BOTH LEGS NOTED TO BE DANGLING OVER THE BED RAIL. BED ALARM GOING OFF. THIS RN AND REVENUE CYCLE SPECIALIST ASSISTED PT TO STAND AND WALK TO GET BACK INTO BED. 2 MODERATE ASSIST WITH GB AND FWW. VERY SHAKY ON HIS FEET AND NEEDING VERBAL CUES. PT FOLLOWING DIRECTIONS, BUT VERY AGITATED AND RAISING HIS VOICE AND STATING HE WANTS TO "BE FREE" AND "GET OUT OF HERE". THIS RN CALLED DR. ALLISON AND GOT ORDERS FOR HALDOL PRN. DOSE GIVEN. THIS RN ROUNDED ON PT APPROX 10 MINS AFTER DOSE GIVEN AND PT APPEARS TO BE RESTING COMFORTABLY IN BED WITH EYES CLOSED. RESPIRATIONS EVEN AND UNLABORED. BED ALARM IN PLACE. CALL LIGHT WITHIN REACH.
[2023-04-06 04:05] VITALS: BP 118/60
--- NOTE | 2023-04-06 04:26 | NUR ---
SHIFT SUMMARY AFTER EPISODE OF AGITATION WITH X1 DOSE HALDOL, PT SLEPT FOR A FEW HOURS. SINCE WAKING UP, PT HAS BEEN PLEASANT, ALERT, AND MOSTLY ORIENTED. HAS NOT TRIED TO GET OUT OF BED. REPORTS MINIMAL PAIN TO R HIP. DRESSING REMAINS CDI. 1 PAIN PILL/TYLENOL/TORADOL FOR PAIN MANAGEMENT. HAMMOND PATENT WITH DARK YELLOW URINE. CALL LIGHT WITHIN REACH. BED ALARM IN PLACE.
[2023-04-06 04:48] LABS: Bun/Creatinine Ratio 23.7 (12.0-20.0); Creatinine, Blood 1.35 mg/dL (0.60-1.20); Magnesium, Blood 1.9 mg/dL (1.6-2.4); Potassium, Blood 5.1 mmol/L (3.5-5.5)
[2023-04-06 05:48] LABS: BASOPHILS ABSOLUTE AUTO 0.01 K/mm3 (0.00-0.23); BASOPHILS PERCENT AUTO 0 % (0-2); EOSINOPHILS ABSOLUTE AUTO 0.01 K/mm3 (0.00-0.68); EOSINOPHILS PERCENT AUTO 0 % (0-6); Hematocrit 30.2 % (37.0-53.0); Hemoglobin 10.2 g/dL (13.5-17.5); IMMATURE GRAN ABSOLUTE AUTO 0.08 K/mm3 (0.00-0.10); IMMATURE GRAN PERCENT AUTO 1 % (0-1); LYMPHOCYTES ABSOLUTE AUTO 0.36 K/mm3 (0.84-5.20); LYMPHOCYTES PERCENT AUTO 3 % (21-46); MONOCYTES ABSOLUTE AUTO 1.07 K/mm3 (0.16-1.47); MONOCYTES PERCENT AUTO 8 % (4-13); Mean Corpuscular HGB 30.4 pg (26.0-34.0); Mean Corpuscular HGB Conc 33.8 g/dL (31.5-36.5); Mean Corpuscular Volume 90 fL (80-100); NEUTROPHILS ABSOLUTE AUTO 12.43 K/mm3 (1.96-9.15); NEUTROPHILS PERCENT AUTO 89 % (41-73); NRBC ABSOLUTE 0.02 K/mm3 (0.00-0.02); NRBC Auto 0.1 /100 WBC (0.0-0.2); Platelet Count 95 K/mm3 (150-400); RDW Coefficient Variation 15.8 % (11.7-14.2); RDW Standard Deviation 52.3 fL (35.1-46.3); Red Blood Cell Count 3.35 M/mm3 (4.30-5.90); White Blood Cell Count 13.96 K/mm3 (4.00-11.30)
[2023-04-06 06:08] LABS: BAND PERCENT MAN 1 % (0-8); BASOPHILS PERCENT MAN 0 % (0-2); EOSINOPHILS PERCENT MAN 0 % (0-6); LYMPHOCYTES ABSOLUTE MAN 0.27 K/mm3 (0.84-5.20); LYMPHOCYTES PERCENT MAN 2 % (21-46); MONOCYTES ABSOLUTE MAN 1.11 K/mm3 (0.16-1.47); MONOCYTES PERCENT MAN 8 % (4-13); NEUTROPHILS ABSOLUTE MAN 12.56 K/mm3 (1.96-9.15); SEG NEUTROPHILS PERCENT MAN 89 % (41-73); TOTAL CELLS COUNTED 100
[2023-04-06 07:15] VITALS: BP 107/63
[2023-04-06 14:36] VITALS: BP 93/59
--- NOTE | 2023-04-06 15:18 | NUR ---
TALKED TO TIARA/CAREGIVER AND VERIFIED PT TAKES ELIQUIS 2.5 MG BID. TELEPHONE CALL TO [facility] AND RELAYED ELIQUIS INFO. CHANGED HOME MED REC TO MATCH BID/DOSE.
--- NOTE | 2023-04-06 19:21 | NUR ---
SHIFT SUMMARY PT A&O3 ALL DAY, MORE CONFUSED AFTER DINNER, SHELLIE PO/90 DEGREES-MEAL SET UP, VOIDING/URINAL, AMB 2 PP MOD ASSIST WITH FWW/GB/VERBAL CUES, UP TO CHAIR T/O SHIFT, PAIN MANAGED PER EMAR. POD1 R BOLIVAR HIP, AQUACEL CHANGED AT SHIFT CHANGE. REPORT TO FABY PENNINGTON.
[2023-04-06 19:46] VITALS: BP 104/55
[2023-04-07 03:54] VITALS: BP 159/76
[2023-04-07 04:37] LABS: Hematocrit 29.3 % (37.0-53.0); Hemoglobin 9.6 g/dL (13.5-17.5); Mean Corpuscular HGB 30.3 pg (26.0-34.0); Mean Corpuscular HGB Conc 32.8 g/dL (31.5-36.5); Mean Corpuscular Volume 92 fL (80-100); Mean Platelet Volume 12.3 fL (9.1-12.4); Platelet Count 100 K/mm3 (150-400); RDW Standard Deviation 54.8 fL (35.1-46.3); Red Blood Cell Count 3.17 M/mm3 (4.30-5.90); White Blood Cell Count 12.16 K/mm3 (4.00-11.30)
--- NOTE | 2023-04-07 05:07 | NUR ---
SUMMARY PT PAIN HAS BEEN MANAGED WELL. PT IS FORGETFUL AND IMPULSIVE AT TIMES. PT IS REDIRECTABLE. PT HAS SLEPT FOR MOST OF SHIFT. PT DRESSING REMAINS C/D/I. PT HAS BEEN DRINKING PO FLUIDS. CALL LIGHT IN REACH AND BEDALARM ON.
[2023-04-07 05:11] LABS: Bun/Creatinine Ratio 27.7 (12.0-20.0); Calcium, Blood 8.6 mg/dL (8.5-10.1); Creatinine, Blood 1.3 mg/dL (0.60-1.20); Potassium, Blood 5.2 mmol/L (3.5-5.5)
[2023-04-07 07:28] VITALS: BP 132/67
[2023-04-07 14:23] VITALS: BP 122/75
--- NOTE | 2023-04-07 15:02 | NUR ---
THIS NURSE ASSUMED CARE AFTER REPORT FROM PRAVEENA PENNINGTON. PATIENT IS LAYING IN BED ASLEEP WITH EVERN/EQUAL RESP. WITH CALL LIGHT IN REACH.
--- NOTE | 2023-04-07 15:54 | NUR ---
SHIFT SUMMARY: POD 2 RIGHT BLOIVAR HIP PATIENT IS A&OX3 AND AT TIMES IS FORGETFUL BUT EASILY REDIRECTED/ORIENTED. PAIN IS MANAGED WITH PO TYLENOL. HIS RIGHT HIP HAS GAUZE WITH FOAM TAPE THAT IS C/D/I. DENIES NUMBNESS OR TINGLING IN ALL EXTREMITIES. PATIENT IS A 2 PERSON ASSIST WITH FWW AND GAIT BELT. PATIENT IS CURRENTLY LAYING IN BED WITH CALL LIGHT IN REACH AND BED ALARM ON A PRECAUTION.
[2023-04-07 20:59] VITALS: BP 169/82
--- NOTE | 2023-04-07 23:19 | NUR ---
THIS RN IS ASSUMING CARE OF THIS PT FROM GERARDO PENNINGTON
[2023-04-08 04:11] VITALS: BP 132/67
--- NOTE | 2023-04-08 04:40 | NUR ---
SHIFT SUMMARY POD 3 R BOLIVAR HIP PT ABLE TO REST T/O NIGHT. PAIN MANAGED PER EMAR. PT USED URINAL MULTIPLE TIMES. TOLERTAING PO INTAKE. NO BOWEL MOVEMENT YET. BULKY DRESSING TO RIGHT HIP C/D/I, CAN BE CHANGED IF NEEDED. HOLDING ELIQUIS FOR THE NEXT 4 DAYS DUE TO EXCESS BLEEDING FOR SURGICAL SITE. NO BLEEDING FOR THIS SHIFT. NO OTHER CONCERNS AT THIS TIME. CALL LIGHT WITHIN REACH
[2023-04-08 05:21] LABS: Albumin, Blood 2.7 g/dL (3.4-5.0); Anion Gap 4 mmol/L (6-16); Blood Urea Nitrogen 29 mg/dL (8-24); Bun/Creatinine Ratio 21.6 (12.0-20.0); CO2, Blood 27 mmol/L (21-32); Calcium, Blood 8.4 mg/dL (8.5-10.1); Chloride, Blood 105 mmol/L (98-108); Creatinine, Blood 1.34 mg/dL (0.60-1.20); Glomerular Filtration Rate 52 (60-); Glucose, Blood 87 mg/dL (70-99); Phosphorus, Blood 2.7 mg/dL (2.5-4.9); Potassium, Blood 4.9 mmol/L (3.5-5.5); Sodium, Blood 136 mmol/L (136-145)
[2023-04-08 05:32] LABS: BASOPHILS ABSOLUTE AUTO 0.02 K/mm3 (0.00-0.23); BASOPHILS PERCENT AUTO 0 % (0-2); EOSINOPHILS ABSOLUTE AUTO 0.58 K/mm3 (0.00-0.68); EOSINOPHILS PERCENT AUTO 6 % (0-6); Hematocrit 29.8 % (37.0-53.0); Hemoglobin 10.1 g/dL (13.5-17.5); IMMATURE GRAN ABSOLUTE AUTO 0.06 K/mm3 (0.00-0.10); IMMATURE GRAN PERCENT AUTO 1 % (0-1); LYMPHOCYTES ABSOLUTE AUTO 1.04 K/mm3 (0.84-5.20); LYMPHOCYTES PERCENT AUTO 11 % (21-46); MONOCYTES ABSOLUTE AUTO 1.28 K/mm3 (0.16-1.47); MONOCYTES PERCENT AUTO 14 % (4-13); Mean Corpuscular HGB 30.6 pg (26.0-34.0); Mean Corpuscular HGB Conc 33.9 g/dL (31.5-36.5); Mean Corpuscular Volume 90 fL (80-100); Mean Platelet Volume 13.2 fL (9.1-12.4); NEUTROPHILS PERCENT AUTO 68 % (41-73); Platelet Count 122 K/mm3 (150-400); RDW Coefficient Variation 16.2 % (11.7-14.2); RDW Standard Deviation 53.8 fL (35.1-46.3); White Blood Cell Count 9.18 K/mm3 (4.00-11.30)
[2023-04-08 07:30] VITALS: BP 102/81
[2023-04-08 14:51] VITALS: BP 114/71
--- NOTE | 2023-04-08 16:47 | NUR ---
SUMMARY: PT IS POD3 R BOLIVAR HIP. A/O, FORGETFUL AT TIMES BUT EASILY REORIENTED AND USES CALL LIGHT. BED ALARM ON FOR SAFETY. SURGICAL SITE WNL. PT ABLE TO WORK WITH THERAPY TODAY. 1 ASSIST WITH FWW AND GAIT BELT. PT REPORTS MINIMAL PAIN, GIVEN TYLENOL. GIVEN BOWEL CARE THIS MORNING AND TONIGHT, AWAITING BM. NO ACUTE CONCERNS, PLAN IS FOR DC TO SNF TOMORROW.
[2023-04-08 20:09] VITALS: BP 151/83
--- NOTE | 2023-04-09 04:40 | NUR ---
SHIFT SUMMARY POD 4 R BOLIVAR HIP PT UP AND RESTLESS MOST OF NIGHT. PT UP TO THE BATHROOM MULITPLE TIMES TRYING TO HAVE A BM. MULTIPLE UNSUCCESSFUL TRIPS. THEN GAVE PT SUP, PT HAD LARGE BM. BULKY DRESSING TO R HIP C/D/I. PT VOIDING AND TOLERTING PO INTAKE. PT NEEDS CONSTANT REMINDERS WHEN TRANSFERRING. VSS. PLAN FOR DISCHARGE TO SNF TODAY. NO OTHER CONCERNS AT THIS TIME. CALL LIGHT WITHIN REACH.
[2023-04-09 05:42] VITALS: BP 151/80
[2023-04-09 07:03] VITALS: BP 114/70
[2023-04-09 14:44] VITALS: BP 117/72
--- NOTE | 2023-04-09 17:05 | NUR ---
DISCHARGE SUMMARY POD4 R BOLIVAR HIP, A/OX4 BUT FORGETFUL, VSS, TOLERATING PO, PAIN WELL MANAGED, VOIDING WELL. REPORT CALLED TO [facility], PICKED UP BY ARRANGED TRASPORTATION, IV REMOVED PRIOR TO DEPARTURE.
== END 2023-04-09 17:04 | DRG 522 ==
LOC: ER 14:14 → SURS 17:00
PROVIDERS: Emergency Medicine; Family Medicine; Internal Medicine; Orthopaedic Surgery; ADMIT Internal Medicine
PROC: 0SRR01A Replacement of Right Hip Joint, Femoral Surface with Metal Synthetic Substitute, Uncemented, Open Approach (ICD-10-PCS; principal; 2023-04-05 13:30)
DX: S72.011A Unspecified intracapsular fracture of right femur, initial encounter for closed fracture (principal); E87.1 Hypo-osmolality and hyponatremia; F05 Delirium due to known physiological condition; I65.23 Occlusion and stenosis of bilateral carotid arteries; I25.10 Atherosclerotic heart disease of native coronary artery without angina pectoris; N18.30 Chronic kidney disease, stage 3 unspecified; G62.9 Polyneuropathy, unspecified; I12.9 Hypertensive chronic kidney disease with stage 1 through stage 4 chronic kidney disease, or unspecified chronic kidney disease; E78.5 Hyperlipidemia, unspecified; F32.A Depression, unspecified; D50.9 Iron deficiency anemia, unspecified; D69.6 Thrombocytopenia, unspecified; D63.1 Anemia in chronic kidney disease; W01.0XXA Fall on same level from slipping, tripping and stumbling without subsequent striking against object, initial encounter; D72.829 Elevated white blood cell count, unspecified; R41.9 Unspecified symptoms and signs involving cognitive functions and awareness; I25.2 Old myocardial infarction; Z85.71 Personal history of Hodgkin lymphoma; Z95.5 Presence of coronary angioplasty implant and graft; Z88.0 Allergy status to penicillin; Z91.040 Latex allergy status; Z79.01 Long term (current) use of anticoagulants
CPT/HCPCS: 36415; 72170; 73502; 73552; 80048; 80053; 80069; 81001; 83735; 85025; 85027; 85610; 94760; 96374; 96376; 97110; 97112; 97162; 97165; 97530; 97535; 99285-25; A9270; C1776; J0171; J0690; J0735; J1100; J1170; J1630; J1885; J2270; J2371; J2405; J2704; J2795; J3010; J3370; J7120

== ENCOUNTER → 2023-05-04 | Outpatient (CLI) | payer MEDICARE, BC, OTHER ==
[~2023-05-04] MED LIST changes: +FERSU300 PO; +NORT25 PO
[2023-05-04 18:55] LABS: BASOPHILS ABSOLUTE AUTO 0.08 K/mm3 (0.00-0.23); BASOPHILS PERCENT AUTO 1 % (0-2); EOSINOPHILS ABSOLUTE AUTO 0.38 K/mm3 (0.00-0.68); EOSINOPHILS PERCENT AUTO 5 % (0-6); Hematocrit 34.4 % (37.0-53.0); Hemoglobin 10.9 g/dL (13.5-17.5); IMMATURE GRAN ABSOLUTE AUTO 0.05 K/mm3 (0.00-0.10); IMMATURE GRAN PERCENT AUTO 1 % (0-1); LYMPHOCYTES ABSOLUTE AUTO 1.17 K/mm3 (0.84-5.20); LYMPHOCYTES PERCENT AUTO 15 % (21-46); MONOCYTES ABSOLUTE AUTO 0.64 K/mm3 (0.16-1.47); MONOCYTES PERCENT AUTO 8 % (4-13); Mean Corpuscular HGB 29.9 pg (26.0-34.0); Mean Corpuscular HGB Conc 31.7 g/dL (31.5-36.5); Mean Corpuscular Volume 94 fL (80-100); NEUTROPHILS ABSOLUTE AUTO 5.77 K/mm3 (1.96-9.15); NEUTROPHILS PERCENT AUTO 71 % (41-73); Platelet Count 202 K/mm3 (150-400); RDW Coefficient Variation 15.9 % (11.7-14.2); Red Blood Cell Count 3.65 M/mm3 (4.30-5.90); White Blood Cell Count 8.09 K/mm3 (4.00-11.30)
[2023-05-04 19:00] LABS: Bun/Creatinine Ratio 19.9 (12.0-20.0); Calcium, Blood 8.9 mg/dL (8.5-10.1); Creatinine, Blood 1.46 mg/dL (0.60-1.20)
== END ==
LOC: LAB SHORT 18:11 → LAB 18:11
PROVIDERS: Hospitalist
DX: I10 Essential (primary) hypertension (principal)
CPT/HCPCS: 80048; 85025

== ENCOUNTER → 2023-05-20 | Outpatient (CLI) | payer MEDICARE, BC, OTHER ==
[2023-05-20 19:29] LABS: Hematocrit 34.4 % (37.0-53.0); Hemoglobin 11.1 g/dL (13.5-17.5); Mean Corpuscular HGB 30.7 pg (26.0-34.0); Mean Corpuscular HGB Conc 32.3 g/dL (31.5-36.5); Mean Corpuscular Volume 95 fL (80-100); RDW Coefficient Variation 15.9 % (11.7-14.2); Red Blood Cell Count 3.61 M/mm3 (4.30-5.90)
[2023-05-20 19:47] LABS: BASOPHILS ABSOLUTE AUTO 0.07 K/mm3 (0.00-0.23); BASOPHILS PERCENT AUTO 1 % (0-2); EOSINOPHILS ABSOLUTE AUTO 0.24 K/mm3 (0.00-0.68); EOSINOPHILS PERCENT AUTO 3 % (0-6); IMMATURE GRAN ABSOLUTE AUTO 0.04 K/mm3 (0.00-0.10); IMMATURE GRAN PERCENT AUTO 1 % (0-1); LYMPHOCYTES ABSOLUTE AUTO 1.23 K/mm3 (0.84-5.20); LYMPHOCYTES PERCENT AUTO 16 % (21-46); MONOCYTES PERCENT AUTO 9 % (4-13); Mean Platelet Volume 13.2 fL (9.1-12.4); NEUTROPHILS ABSOLUTE AUTO 5.51 K/mm3 (1.96-9.15); NEUTROPHILS PERCENT AUTO 71 % (41-73); Platelet Count 164 K/mm3 (150-400); White Blood Cell Count 7.79 K/mm3 (4.00-11.30)
[2023-05-22 10:04] LABS: CALCIUM, SERUM 8.7 mg/dL (8.6-10.2); CREATININE, SERUM 1.06 mg/dL (0.76-1.27); POTASSIUM, SERUM 4.6 mmol/L (3.5-5.2)
== END ==
LOC: LAB 14:55 → LAB SHORT 14:55
PROVIDERS: Hospitalist
DX: N18.31 Chronic kidney disease, stage 3a (principal); D63.1 Anemia in chronic kidney disease
CPT/HCPCS: 80048; 85025